=== PATIENT | female | born 1995 | race Caucasian/White ===

== ENCOUNTER 2016-09-05 12:44 | Observation (INO) ==
[2016-09-05 13:22] LABS: Bilirubin,Urine Negative (Negative); Blood,Urine Negative (Negative); Clarity,Urine Cloudy (Clear); Color,Urine Yellow (Yellow); Glucose,Urine (UA) Normal (Normal); Ketones,Urine Negative (Negative); Leukocyte Esterase,Urine Small (Negative); Nitrite,Urine Negative (Negative); Protein,Urine Negative (Neg-Trace); Specific Gravity,Urine 1.016 (1.010-1.025); Urobilinogen,Urine Normal (Normal)
[2016-09-05 13:23] LABS: Bacteria,Urine Many per hpf (None-Few); RBC,Urine 0-3 per hpf (0-3); Squamous Epithelial Cell,Urine Many per lpf (None-Few); WBC,Urine 30-50 per hpf (0-3)
--- NOTE | 2016-09-05 14:11 | OB/GYN Progress Note ---
Date of Encounter: 09/05/16 Time of Encounter: 13:59 - Assessment and Plan (1) 36 weeks gestation of Current Visit: Yes Status: Acute (2) Gestational diabetes mellitus (GDM) affecting Current Visit: No Status: Acute (3) Morbid obesity Current Visit: No Status: Chronic Qualifiers: Obesity type: due to excess calories Qualified Code(s): E66.01 - Morbid ( severe) obesity due to excess calories (4) Fall Current Visit: Yes Status: Acute Qualifiers: Encounter type: initial encounter Qualified Code(s): W19.XXXA - Unspecified fall, initial encounter (5) Abdominal pain affecting Current Visit: Yes Status: Acute Pt with some contractions. SVE ft/thick/high x 2 per RN. Pt with minimal discomfort with contractions. Discharge home with precautions. (6) Previous delivery affecting , antepartum Current Visit: Yes Status: Acute Subjective - Subjective Interval history: 21 year-old presenting at 36 weeks gestation with c/o contractions. She has a history of prior . She denies large gush of fluid or VB. Good FM. She reports having contractions since she fell yesterday at 8pm. She states the contractions were initially mild and have gotten stronger. When she fell she tripped over a laundry basket and caught herself on the bed. She does admit to hitting her abdomen on the laundry basket. This has been complicated by A2GDM that she reports is well controlled on Glyburide. Her glucoses are being managed by the diabetes clinic at [facility]. THe is also complicated by obesity and LGA fetus. No other complications. Antepartum ROS: movement normal, contractions, no loss of fluid, no vaginal bleeding Objective - Vital Signs Vital Signs: Intake and Output 09/04/16 09/05/16 09/05/16 23:59 07:59 15:59 Other: Weight 120.4 kg Patient Weight 09/05/16 23:59 Weight 120.4 kg - Exam FHR: category 1 FHR comments: NST reactive Auscultation: bilateral: normal Abdomen: Present: soft, gravid. Absent: tenderness Uterus: Present: normal Cervical dilation: ft - Labs Labs: Abnormal lab results Urine Clarity Cloudy (Clear) A 09/05/16 13:05 Ur Leukocyte Esterase Small (Negative) H 09/05/16 13:05 Urine Microscopic WBC 30-50 per hpf (0-3) H 09/05/16 13:05 Ur Squamous Epith Cells Many per lpf (None-Few) H 09/05/16 13:05 Urine Bacteria Many per hpf (None-Few) H 09/05/16 13:05 Ur Culture Indicated? YES (NO) A 09/05/16 13:05
== END 2016-09-05 15:00 | disposition home or self-care (01) ==
LOC: 1NENULAB
PROVIDERS: ADMIT Obstetrics & Gynecology; ATTEND Obstetrics & Gynecology

== ENCOUNTER 2016-09-10 13:26 | Observation (INO) ==
[2016-09-10 13:53] LABS: Basophils % 0.1 %; Eosinophils # 0.1 K/mcL (0.0-0.6); Eosinophils % 0.5 %; Hematocrit 34.9 % (35.3-44.9); Hemoglobin 11.3 g/dL (11.5-15.4); Immature Granulocytes % 0.4 % (0-4); Lymphocytes # 1.7 K/mcL (0.6-4.6); Lymphocytes % 17.5 %; Mean Corpuscular HGB Conc 32.4 g/dL (31.6-35.5); Mean Corpuscular Hemoglobin 25.8 pg (28.0-33.3); Mean Corpuscular Volume 79.7 fL (83.0-100.0); Mean Platelet Volume 10.5 fL (9.4-12.4); Monocytes # 0.6 K/mcL (0.0-1.3); Monocytes % 6.4 %; Neutrophils # 7.1 K/mcL (1.6-8.9); Platelet Count 157 K/mcL (140-400); Red Blood Count 4.38 M/mcL (3.82-4.97); Red Cell Distribution Width 14.1 % (11.5-14.5); Segmented Neutrophils % 75.1 %
[2016-09-10 13:56] LABS: Bilirubin,Urine Negative (Negative); Blood,Urine Negative (Negative); Clarity,Urine Cloudy (Clear); Color,Urine Dark Yellow (Yellow); Glucose,Urine (UA) Normal (Normal); Ketones,Urine Negative (Negative); Leukocyte Esterase,Urine Negative (Negative); Nitrite,Urine Negative (Negative); PH,Urine 6.5 pH Units (5.0-8.0); Protein,Urine Negative (Neg-Trace); Specific Gravity,Urine 1.019 (1.010-1.025); Urobilinogen,Urine Normal (Normal)
[2016-09-10 13:57] LABS: Bacteria,Urine None Seen per hpf (None-Few); Hyaline Casts,Urine None Seen per lpf (None-Few); RBC,Urine 0-3 per hpf (0-3); Squamous Epithelial Cell,Urine Many per lpf (None-Few); WBC,Urine 0-3 per hpf (0-3)
[2016-09-10] MEDS ORDERED: Ringers Solution, Lactated 1,000 ML ONE (14:03)
[2016-09-10 14:06] LABS: Alanine Aminotransferase 8 Units/L (0-55); Aspartate Amino Transferase 9 Units/L (5-34); BUN/Creatinine Ratio 7 (6-26); Lactate Dehydrogenase 160 Units/L (159-327); Uric Acid 4.8 mg/dL (2.6-6.0); eGFR For African Americans > 60 (> 60); eGFR For Non-African Americans > 60 (> 60)
[2016-09-10 14:07] LABS: Blood Urea Nitrogen 4 mg/dL (7-20)
[2016-09-10] MEDS: Ringers Solution, Lactated 1,000 ML IVC SCH (14:07)
--- NOTE | 2016-09-10 14:40 | OB/GYN History & Physical ---
Date of Encounter: 09/10/16 Time of Encounter: 14:34 Assessment and Plan (1) 36 weeks gestation of Current visit: Yes Status: Acute admit for observation (2) PIH ( induced hypertension), antepartum Current visit: Yes Status: Acute PIH labs serial bps History of Present Illness Chief complaint: Elevated BP HPI: Ms. Mancia is a 21 year old female at 36w5d with EDC 10/03/2016. Patient was sent to labor and delivery for PIH evaluation. Patient had BP of 160/100 in office. Patient reports headache and visual disturbances. Urine was negative for protein. Patient reports she hasn't ate since yesterday and has not had anything to drink today. Patient hasn't taken anything for headache. Patient is a Gestational diabetic on Glyburide 5mg po bid. Past Med Surg Social Fam HX - Past Medical History Source: patient Medical history: no medical history Psychiatric history: no psych history - Past Surgical History Surgical History: - Social History Smoking Status: Never smoker Smokeless Tobacco Status: No Alcohol use: none Drug use: none Current living situation: Home - Independent Activity Level: Independent ambulation Recent Out of Country Travel Within the Last 8 Weeks: No Exposure or Possible Exposure to Illness During Travel: No - Family History Father Adopted: [place]: [place] Living Status: Still Living Hx Family Cardiac Disorders: No Hx Family Respiratory Disorders: No Hx Family Cancer: No Hx Family GI Disorders: No Hx Family Genitourinary Disorders: No Hx Family Endocrine Disorder: No Hx Family Musculoskeletal Disorders: No Hx Family Neuromuscular Disorders: No Hx Family Neurologic Disorders: No Hx Family HEENT Disorders: No Hx Family Autoimmune Disorders: No Hx Family Reproductive Disorders: No Hx Family Psychosocial Disorders: No Hx Family Medical Disorders: No Obstetrical History - Pregnancies : 5 Para: 3 Term: 3 : 0 Ab's: 1 Livin Medications and Allergies Flintstones 1 tab PO DAILY 07/15/16 [History] GlyBURIDE 0.5 tab PO BID #0 08/21/16 [Rx] Allergies No Known Allergies Allergy (Verified 08/20/16 16:01) Review of System OB - Constitutional Constitutional ROS IM: headache(s), no chills, no fever(s) - Cardiovascular Cardiovascular: edema (pedal edema), no lightheadedness, no palpitations, no syncope - Respiratory Respiratory: no cough - Gastrointestinal Gastrointestinal: no constipation, no diarrhea, no heartburn, no nausea, no vomiting - Genitourinary Genitourinary: no abnormal vaginal bleeding, no dysuria, no flank pain, no urinary frequency, no urinary hesitancy, no urinary urgency, no vaginal discharge, no vaginal odor - Neurological Nerological: dizziness, other visual disturbances Exam - Constitutional Constitutional: well developed, well nourished, obese - HEENT HEENT: Normocephaly, Mucus Membranes Moist - Neck Neck exam: full ROM, supple - Lungs Respiratory exam: CTAB - Cardiovascular Cardiovascular exam: RRR, +S1, +S2 - Abdomen Abdomen: Present: bowel sounds normal, gravid, non tender - Extremities Extremities exam: normal capillary refill, pedal edema (1+) Deep Tendon Reflex Grade: 2+ Normal (no clonus) - Comments Comments: Patient was FT and thick in office today per Dr. Cardoso. FHR 135 bpm moderate variability +15x15 accels no decels noted. Cat. 1 tracing. Contractions 2-3 min apart. Results Result Diagrams: 09/10/16 13:44 09/10/16 13:44 Abnormal lab results Hgb 11.3 g/dL (11.5-15.4) L 09/10/16 13:44 Hct 34.9 % (35.3-44.9) L 09/10/16 13:44 MCV 79.7 fL (83.0-100.0) L 09/10/16 13:44 MCH 25.8 pg (28.0-33.3) L 09/10/16 13:44 BUN 4 mg/dL (7-20) L 09/10/16 13:44 Urine Clarity Cloudy (Clear) A 09/10/16 13:44 Ur Squamous Epith Cells Many per lpf (None-Few) H 09/10/16 13:44 All other labs normal. - VTE Reasons for not Prescribing Prophylaxis: Treatment not Indicated - Low risk for VTE
== END 2016-09-10 19:01 | disposition home or self-care (01) ==
LOC: 1NENULAB
PROVIDERS: ADMIT Obstetrics & Gynecology; ATTEND Obstetrics & Gynecology

== ENCOUNTER → 2016-09-17 16:05 | Observation (INO) ==
[2016-09-17 15:09] LABS: Bilirubin,Urine Negative (Negative); Blood,Urine Moderate (Negative); Clarity,Urine Clear (Clear); Color,Urine Yellow (Yellow); Glucose,Urine (UA) Normal (Normal); Ketones,Urine Negative (Negative); Leukocyte Esterase,Urine Negative (Negative); Nitrite,Urine Negative (Negative); Protein,Urine 30 mg/dL (Neg-Trace); Specific Gravity,Urine 1.025 (1.010-1.025); Urobilinogen,Urine Normal (Normal)
[2016-09-17 15:43] LABS: Bacteria,Urine Many per hpf (None-Few); RBC,Urine 15-30 per hpf (0-3); Squamous Epithelial Cell,Urine Many per lpf (None-Few); WBC,Urine 0-3 per hpf (0-3)
[~2016-09-17 16:05] MED LIST: Ringers Solution, Lactated 1,000 ML IVC SCH; Ringers Solution, Lactated 1,000 ML ONE; Ringers Solution, Lactated 500 ML IVC ONE
--- NOTE | 2016-09-23 15:55 | OB Labor Progress Note ---
Date of Encounter: 09/17/16 Time of Encounter: 15:50 Labor Progress Note - Plan Plan: Patient is a 21 y/o who came in to L and D as a labor eval. She was evaluated and deemed not to be in labor. Ok for discharge.
== END | disposition home or self-care (01) ==
LOC: 1NENULAB
PROVIDERS: ADMIT Student in an Organized Health Care Education/Training Program; ATTEND Student in an Organized Health Care Education/Training Program

== ENCOUNTER 2016-09-27 05:47 | Inpatient (IN) ==
[2016-09-27] MEDS ORDERED: Ringers Solution, Lactated 1,000 ML ONE ×2 (06:06→07:48)
[2016-09-27] MEDS ORDERED: CeFAZolin Pre 3,000 MG/100 ML 3,000 MG/100 ML BAG IVPB ONE (06:18)
[2016-09-27] MEDS ORDERED: Ringers Solution, Lactated 1,000 ML IVC ONE ×2 (06:18→06:30)
[2016-09-27] MEDS ORDERED: Metoclopramide 10 MG/2 ML VIAL IVP ONE (06:18)
[2016-09-27] MEDS ORDERED: Famotidine 20 MG/2 ML VIAL IVP ONE (06:18)
--- NOTE | 2016-09-27 06:21 | OB/GYN History & Physical ---
Date of Encounter: 09/27/16 Time of Encounter: 06:19 Assessment and Plan (1) 39 weeks gestation of Current visit: Yes Status: Acute Patient is a at 39 weeks + 1 days who presents for a repeat with Dr. Cardoso (2) Gestational diabetes mellitus (GDM) affecting Current visit: Yes Status: Acute Patient with gestational diabetes mellitus controlled with glyburide 5mg 1 by mouth every morning and 2 by mouth daily at bedtime. (3) Morbid obesity Current visit: Yes Status: Chronic Qualifiers: Obesity type: due to excess calories Qualified Code(s): E66.01 - Morbid ( severe) obesity due to excess calories (4) Sterilization Current visit: Yes Status: Acute History of Present Illness Chief complaint: 39 weeks gestation, repeat HPI: Ms. Mancia is a 21 year old female at 39 weeks + 1 day who presents today for scheduled repeat and tubal sterilization with Dr. Cardoso. Patient reports she has been having occasional contractions. She denies any headache , changes in vision, chest pain, SOB, or changes in bowel or bladder function. She is a gestational diabetic who is being co-managed by maternal medicine and is currently on glyburide 5 mg every morning and 5 mg 2 in the evening . She reports that her sugars have been well controlled. She reports active fetus, denies ruptured membranes, or vaginal bleeding. Past Med Surg Social Fam HX - Past Medical History Medical history: no medical history Psychiatric history: no psych history - Past Surgical History Surgical History: - Social History Smoking Status: Never smoker Smokeless Tobacco Status: No Alcohol use: none Drug use: none - Family History Father Adopted: No Living Status: Still Living Hx Family Cardiac Disorders: No Hx Family Respiratory Disorders: No Hx Family Cancer: No Hx Family GI Disorders: No Hx Family Endocrine Disorder: No Hx Family Neuromuscular Disorders: No Hx Family Neurologic Disorders: No Hx Family HEENT Disorders: No Hx Family Autoimmune Disorders: No Obstetrical History - Pregnancies : 5 Para: 3 Term: 3 : 0 Ab's: 1 Livin Medications and Allergies Flintstones 1 tab PO DAILY 07/15/16 [History] GlyBURIDE 0.5 tab PO BID #0 08/21/16 [Rx] Ranitidine HCl [Zantac] 150 mg PO TID PRN 09/27/16 [History] Allergies No Known Allergies Allergy (Verified 08/20/16 16:01) Review of System OB - Constitutional Constitutional ROS IM: no chills, no fever(s) - Cardiovascular Cardiovascular: no chest pain, no edema, no palpitations - Respiratory Respiratory: no cough, no dyspnea, no wheezing - Gastrointestinal Gastrointestinal: no constipation, no diarrhea, no nausea, no vomiting - Genitourinary Genitourinary: no urinary frequency, no urinary hesitancy, no urinary incontinence - Neurological Nerological: no confusion, no headache(s), no other visual disturbances Exam - Constitutional Constitutional: well developed, well nourished, no acute distress - HEENT HEENT: Normocephaly, Mucus Membranes Moist - Lungs Respiratory exam: CTAB - Cardiovascular Cardiovascular exam: RRR - Abdomen Abdomen: Present: bowel sounds normal, gravid - Extremities Extremities exam: full ROM Results Result Diagrams: 09/27/16 06:10 All other labs normal.
[2016-09-27 06:24] LABS: Basophils % 0.2 %; Eosinophils # 0.1 K/mcL (0.0-0.6); Eosinophils % 0.7 %; Hematocrit 35.7 % (35.3-44.9); Hemoglobin 11.2 g/dL (11.5-15.4); Immature Granulocytes % 0.4 % (0-4); Lymphocytes # 2.3 K/mcL (0.6-4.6); Lymphocytes % 24.4 %; Mean Corpuscular HGB Conc 31.4 g/dL (31.6-35.5); Mean Corpuscular Hemoglobin 24.9 pg (28.0-33.3); Mean Corpuscular Volume 79.5 fL (83.0-100.0); Mean Platelet Volume 11.3 fL (9.4-12.4); Monocytes # 0.6 K/mcL (0.0-1.3); Monocytes % 6.6 %; Neutrophils # 6.2 K/mcL (1.6-8.9); Platelet Count 187 K/mcL (140-400); Red Blood Count 4.49 M/mcL (3.82-4.97); Red Cell Distribution Width 14.9 % (11.5-14.5); Segmented Neutrophils % 67.7 %
[2016-09-27] MEDS ORDERED: Ringers Solution, Lactated 1,000 ML IVC SCH ×2 (06:30)
--- NOTE | 2016-09-27 06:42 | Anesthesia Evaluation PreOp ---
Date of Encounter: 09/27/16 Time of Encounter: 06:40 - Past History Planned Operation: repeat Cardiac History: Denies any Significant Hx Pulmonary History: Denies Any Significant HX ANESTHESIOLOGY FACULTY History: Denies Any Significant HX Other Medical History: GERD, Other (gestional DM) Anesthesia History: No Prior Anesthetic Complications, Past Anesthesia Alcohol Use: none Drug use: none Medications and Allergies Flintstones 1 tab PO DAILY 07/15/16 [History] GlyBURIDE 0.5 tab PO BID #0 08/21/16 [Rx] Ranitidine HCl [Zantac] 150 mg PO TID PRN 09/27/16 [History] Allergies No Known Allergies Allergy (Verified 08/20/16 16:01) Anesthesia Results - Labs 09/27/16 06:10 Anesthesia Exam - HEENT Pupil (Motor): Pupils equal Mallampati: III Teeth: Normal Oral Opening: Greater than 3 - ANESTHESIOLOGY FACULTY LOC: Oriented ANESTHESIOLOGY FACULTY Motor: Normal RUE, Normal LUE, Normal RLE, Normal LLE, Normal Face ANESTHESIOLOGY FACULTY Sensory: Normal: RUE, LUE, RLE, LLE, Face - Cardiac Rhythm: Regular Murmur: None - Pulmonary Breath Sounds: bilateral Clear Respiratory Effort: Symmetrical Anesthesia Assess/Plan ASA Score: 3 Modified Bis[place] Scale for Level of Consciousness: Cooperative, oriented, and tranquil Anesthetic Plan: General, Regional Monitoring Plan: Standard Monitors
[2016-09-27] MEDS ORDERED: *HR* Morphine Sulfate/PF 5 MG/10 ML AMPUL ONE (07:51)
[2016-09-27] MEDS ORDERED: *HR* FentaNYL (PF) 100 MCG/2 ML VIAL ONE (07:51)
[2016-09-27] MEDS ORDERED: *HR* Phenylephrine 10 MG/ML VIAL ONE (08:05)
[2016-09-27] MEDS ORDERED: EPHEDrine 50 MG/ML VIAL ONE (08:08)
[2016-09-27] MEDS ORDERED: Ondansetron 4 MG/2 ML VIAL ONE ×2 (08:16→11:00)
[2016-09-27] MEDS ORDERED: *HR* Oxytocin 10 UNIT/ML VIAL IM ONE (08:31)
[2016-09-27] MEDS ORDERED: *HR* HYDROmorphone (PF) 1 MG/ML SYRINGE IVP PRN (08:39)
[2016-09-27] MEDS ORDERED: Ondansetron 4 MG/2 ML VIAL IVP ONE (08:49)
[2016-09-27] MEDS ORDERED: *HR* Meperidine 25 MG/ML SYRINGE IVP PRN (08:49)
[2016-09-27] MEDS ORDERED: *HR* Promethazine 25 MG/ML VIAL IVP PRN (08:49)
[2016-09-27] MEDS ORDERED: *HR* Morphine 2 MG/ML SYRINGE IVP PRN (08:49)
[2016-09-27] MEDS ORDERED: Oxytocin 20 units/ LR 1000 mL 20 UNIT/1,000 ML BAG IVC ONE (10:30)
--- NOTE | 2016-09-27 10:39 | OB/GYN Procedure Note ---
Section - Date of procedure: 09/27/16 Preop diagnosis: desires repeat , desires sterilization Post-op diagnosis: same Procedure: repeat low transverse, bilateral tubal ligation Surgeon: Heriberto Cardoso Estimated blood loss (cc): 500 Artist Consultant: Marina Dominguez Anesthesiologist: Zion Starks Anesthesia Type: Spinal section complications: none Disposition: PACU Specimens: Placenta, Right tube segment, Left tube segment - (s) A Infant Delivery Date: 09/27/16 Infant Delivery Time: 08:29 Presentation: vertex Position: OA Gender: Female Viability: Viable Pounds: 9 Ounces: 0 at 1 minute: 8 at 5 minutes: 9 Specimens collected: cord blood Placenta: complete extraction - Narrative Narrative: Patient was taken to the operating room. After satisfactory spinal anesthesia was achieved, she was placed in supine position with Lewis catheter inserted and prepped and draped in usual manner. After appropriate timeout, the abdomen was entered through standard Maylard incision. The Javier retractor was placed. The peritoneum overlying the lower uterine segment was incised in the U -shaped fashion. Uterine cavity entered sharply and extended laterally. Membranes were ruptured yielding clear fluid. With fundal pressure , the head was delivered. Infant suctioned upon delivery of the head. The remainder of the infant was delivered and the umbilical cord was double clamped and was handed to nursery staff for further evaluation. Placenta was manually removed . Uterus was brought from within the abdominal cavity and wiped clean. Uterus is closed with 0 Monocryl. Attention turned to the tubal. Tubes were followed out to the fimbrial ends and resected and sent to pathology for analysis. Pedicles were ligated using a 2-0 chromic. After assurance of hemostasis, the uterus is placed back within the abdominal cavity. The retractor was removed. The abdomen was closed in standard fashion using 0 Vicryl on the fascia and 3-0 Vicryl on the skin. Sterile dressing was applied. She did well and was taken to recovery room in satisfactory condition. Counts were correct
[2016-09-27] MEDS ORDERED: *HR* Promethazine 25 MG/ML VIAL ONE (11:01)
[2016-09-27] MEDS ORDERED: Metoclopramide 10 MG/2 ML VIAL IVP PRN (12:17)
[2016-09-27] MEDS ORDERED: Ondansetron 4 MG/2 ML VIAL IVP PRN (12:17)
[2016-09-27] MEDS ORDERED: Sennosides 8.6 MG TABLET PO PRN (12:17)
[2016-09-27] MEDS ORDERED: Simethicone 80 MG TAB.CHEW PO PRN (12:17)
[2016-09-27] MEDS ORDERED: NON-FORMULARY MEDICATION 1 EACH EACH (Ranitidine Hcl [Zantac] 150 MG) PO PRN (12:17)
[2016-09-27] MEDS ORDERED: Famotidine 20 MG TABLET PO PRN (12:45)
[2016-09-27] MEDS: *HR* OxyCODONE/APAP 5/325 TABLET PO PRN ×2 (15:08→19:45)
[2016-09-27] MEDS: Oxytocin 20 units/ LR 1000 mL 20 UNIT/1,000 ML BAG IV SCH (16:25)
[2016-09-28] MEDS: Oxytocin 20 units/ LR 1000 mL 20 UNIT/1,000 ML BAG IV SCH (00:30)
[2016-09-28] MEDS: Ibuprofen 600 MG TABLET PO PRN ×4 (00:30→22:12)
[2016-09-28] MEDS: *HR* OxyCODONE/APAP 5/325 TABLET PO PRN ×4 (00:30→22:12)
[2016-09-28 04:00] LABS: Basophils % 0.2 %; Eosinophils # 0.1 K/mcL (0.0-0.6); Eosinophils % 1.2 %; Hematocrit 29.5 % (35.3-44.9); Immature Granulocytes % 0.7 % (0-4); Lymphocytes # 1.6 K/mcL (0.6-4.6); Lymphocytes % 17.8 %; Mean Corpuscular HGB Conc 30.8 g/dL (31.6-35.5); Mean Corpuscular Hemoglobin 25.1 pg (28.0-33.3); Mean Corpuscular Volume 81.3 fL (83.0-100.0); Mean Platelet Volume 10.7 fL (9.4-12.4); Monocytes # 0.7 K/mcL (0.0-1.3); Monocytes % 7.9 %; Neutrophils # 6.6 K/mcL (1.6-8.9); Platelet Count 129 K/mcL (140-400); Red Blood Count 3.63 M/mcL (3.82-4.97); Segmented Neutrophils % 72.2 %
[2016-09-28 04:01] LABS: Hemoglobin 9.1 g/dL (11.5-15.4)
[2016-09-28] MEDS: Prenatal Vit/FA 1 EACH TABLET PO SCH (07:23)
--- NOTE | 2016-09-28 08:41 | OB/GYN Progress Note ---
Date of Encounter: 09/28/16 Time of Encounter: 08:39 - Assessment and Plan (1) Status post Current Visit: Yes Status: Acute Patient is POD#1 s/p . She is doing well. Incision dressing is clean and intact. Will continue to monitor. Anticipate DC home with baby tomorrow. (2) Gestational diabetes mellitus (GDM) affecting Current Visit: Yes Status: Acute Patient with gestational diabetes mellitus. Prior to delivery controlled with glyburide 5mg PO BID. Will continue to monitor blood sugars- postprandial and QHS. Currently no pharmacological treatment indicated. (3) Morbid obesity Current Visit: Yes Status: Chronic Qualifiers: Obesity type: due to excess calories Qualified Code(s): E66.01 - Morbid ( severe) obesity due to excess calories Subjective - Subjective Principal diagnosis: POD #1 s/p repeat Interval history: Patient is POD#1 s/p repeat . Vital signs are stable. Labs show appropriate drop in hemoglobin. Patient reports that overall she is doing well. She reports some abdominal pain especially with movement. Pain controlled with PO percocet and motrin. Patient reports normal appetite. She was a gestational diabetic so we are monitoring glucose levels postprandial and HS. Last glucose was 120. She is passing gas and urinating appropriately. Baby is being monitored for elevated bilirubin but doing well. I examined this patient and my medical decision-making was reviewed with the OUTPATIENT RECEPTIONIST/PA/Advanced Practice Nurse/Resident Physician. I agree with the documented findings, disposition and treatment plan as described except to the extent set forth below. Patient reports: appetite normal, voiding normally, pain well controlled, ambulating normally, no nauseated [place]: doing well Objective - Vital Signs Latest vital signs: Vital Signs Temp Pulse Pulse Resp BP Pulse Ox 09/28/16 08:23 98.1 F 84 16 120/75 09/28/16 04:30 97.9 F 82 16 118/70 97 09/28/16 00:30 97.8 F 100 16 116/73 98 09/27/16 19:47 84 16 09/27/16 19:25 98.1 F 97 16 112/69 98 09/27/16 14:40 97.9 F 96 16 110/72 98 09/27/16 13:40 97.9 F 103 16 136/69 97 09/27/16 12:40 97.9 F 98 16 121/68 98 09/27/16 12:10 97.9 F 108 16 125/76 09/27/16 11:40 97.9 F 86 16 116/75 97 Intake and Output 09/27/16 09/28/16 09/28/16 23:59 07:59 15:59 Intake Total 0 / 0 1500 / 1500 Output Total 650 / 650 200 / 200 Balance -650 / -650 1300 / 1300 Intake: IV Fluids 1000 / 1000 Pitocin 20 unit In 1,000 1000 / 1000 ml @ 125 mls/hr IV .Q8H ZAMZAM Rx#:[id number] Oral 0 / 0 500 / 500 Output: Catheter 650 / 650 200 / 200 Other: Stool Characteristics Normal for Patient Normal for Patient Weight 113.3 kg Blood Glucose* 120 Patient Weight 09/28/16 23:59 Weight 113.3 kg - Exam Lungs: bilateral: normal Chest: Normal S1, Normal S2 Extremities: Present: normal Abdomen: Present: soft, tenderness Incision: Present: normal, dry, intact, dressed - Labs Labs: Laboratory Results - last 24 hr 09/27/16 09/28/16 09/28/16 13:26 00:45 03:44 WBC 9.2 RBC 3.63 L Hgb 9.1 L D Hct 29.5 L MCV 81.3 L MCH 25.1 L MCHC 30.8 L RDW 15.0 H Plt Count 129 L MPV 10.7 Immature Gran % 0.7 Seg Neutrophils % 72.2 Lymphocytes % 17.8 Monocytes % 7.9 Eosinophils % 1.2 Basophils % 0.2 Neutrophils # 6.6 Lymphocytes # 1.6 Monocytes # 0.7 Eosinophils # 0.1 Basophils # 0.0 POC Glucose 68 120 H
[2016-09-28] MEDS ORDERED: FLINTSTONES PO SCH (09:00)
[2016-09-28 20:22] VITALS: BP 127/76
[2016-09-29] MEDS: *HR* OxyCODONE/APAP 5/325 TABLET PO PRN (08:38)
[2016-09-29] MEDS: Prenatal Vit/FA 1 EACH TABLET PO SCH (08:38)
--- NOTE | 2016-09-29 11:08 | Discharge Summary ---
Date of Encounter: 09/29/16 Time of Encounter: 11:15 - Discharge Medications Prescriptions: OxyCODONE/APAP 5/325 [Percocet 5/325 MG] 1 each PO Q4HR PRN #30 tablet PRN Reason: Pain Ibuprofen [Motrin] 600 mg PO Q6HR PRN #60 tab PRN Reason: Pain Home Medications: Flintstones 1 tab PO DAILY 07/15/16 [History] GlyBURIDE 0.5 tab PO BID #0 08/21/16 [Rx] Ranitidine HCl [Zantac] 150 mg PO TID PRN 09/27/16 [History] Ibuprofen [Motrin] 600 mg PO Q6HR PRN #60 tab 09/29/16 [Rx] OxyCODONE/APAP 5/325 [Percocet 5/325 MG] 1 each PO Q4HR PRN #30 tablet 09/29/16 [Rx] Allergies/Adverse Reactions: Allergies No Known Allergies Allergy (Verified 08/20/16 16:01) Data Procedures and tests throughout hospitalization: Laboratory Tests 09/27/16 09/27/16 09/27/16 06:10 06:32 13:26 WBC 9.2 RBC 4.49 Hgb 11.2 L Hct 35.7 MCV 79.5 L MCH 24.9 L MCHC 31.4 L RDW 14.9 H Plt Count 187 MPV 11.3 Immature Gran % 0.4 Seg Neutrophils % 67.7 Lymphocytes % 24.4 Monocytes % 6.6 Eosinophils % 0.7 Basophils % 0.2 Neutrophils # 6.2 Lymphocytes # 2.3 Monocytes # 0.6 Eosinophils # 0.1 Basophils # 0.0 Immature Plt Fraction 8.0 H POC Glucose 85 68 09/28/16 09/28/16 09/28/16 00:45 03:44 09:55 WBC 9.2 RBC 3.63 L Hgb 9.1 L D Hct 29.5 L MCV 81.3 L MCH 25.1 L MCHC 30.8 L RDW 15.0 H Plt Count 129 L MPV 10.7 Immature Gran % 0.7 Seg Neutrophils % 72.2 Lymphocytes % 17.8 Monocytes % 7.9 Eosinophils % 1.2 Basophils % 0.2 Neutrophils # 6.6 Lymphocytes # 1.6 Monocytes # 0.7 Eosinophils # 0.1 Basophils # 0.0 Immature Plt Fraction POC Glucose 120 H 98 H 09/28/16 09/28/16 18:30 23:42 WBC RBC Hgb Hct MCV MCH MCHC RDW Plt Count MPV Immature Gran % Seg Neutrophils % Lymphocytes % Monocytes % Eosinophils % Basophils % Neutrophils # Lymphocytes # Monocytes # Eosinophils # Basophils # Immature Plt Fraction POC Glucose 120 H 100 H Labs on day of discharge: Labs from last 24 hours 09/28/16 09/28/16 23:42 18:30 POC Glucose 100 H 120 H Date of admission: 09/27/16 05:47 Primary care physician: PCP NO - Patient Status Disposition: Home, Self-Care Condition: Good Functional capacity at discharge: independent ambulation Overall status at discharge: patient is progressing back to baseline - Discharge Instructions Follow Up With: BOOGIE,PCP [Primary Care Provider] - Hospital Course MEDICAL ACCOUNTS RECEIVABLE SPECIALIST Time Attestation: Total time spent providing and/or coordinating discharge services: Exam - Constitutional Vitals: Temp Pulse Resp BP Pulse Ox 98 F 109 20 127/76 98 09/29/16 07:54 09/29/16 07:54 09/29/16 07:54 09/28/16 20:17 09/29/16 07:54 General appearance IM: A&O X 3 - Respiratory Respiratory exam: Present: CTAB - Cardiovascular Cardiovascular exam IM: Present: RRR - GI/Abdominal GI/Abdominal exam IM: normal bowel sounds Incision: normal - External exam: normal external exam - VTE Documentation of Mechanical Device: Intermittent pneumatic compression device
== END 2016-09-29 11:44 | disposition home or self-care (01) | DRG 540 ==
LOC: 1NENULAB 05:47 → 1NENUOBS 12:16
PROVIDERS: ADMIT Obstetrics & Gynecology; ATTEND Obstetrics & Gynecology